=== PATIENT | male | born 1965 | race Caucasian/White ===

== ENCOUNTER → 2017-07-26 | Outpatient (CLI) | payer OTHER | END | disposition home or self-care (01) | LOC: WOUND 09:30 | PROVIDERS: ATTEND Internal Medicine | DX: L97.511 Non-pressure chronic ulcer of other part of right foot limited to breakdown of skin (principal); E78.5 Hyperlipidemia, unspecified; Z72.89 Other problems related to lifestyle | CPT/HCPCS: 97597; 99215 ==